=== PATIENT | female | born 1995 | race Caucasian/White ===

== ENCOUNTER 2017-05-14 21:26 | Emergency (ER) | payer OTHER ==
[2017-05-14] MEDS ORDERED: Phenergan 25 MG INJ IM ONE (21:53)
--- NOTE | 2017-05-14 21:54 | ERPHSYRPT ---
- History of Present Illness Time Seen by Provider: 05/14/17 21:48 Source: patient Exam Limitations: no limitations Physician History: YESTERDAY AT HOME PT WAS IN THE KITCHEN, BENT OVER, RAISED UP AND HIT THE BACK OF HER HEAD ON THE OVEN DOOR WITH RESULTANT HEADACHE, TINNITUS AND PHOTOPHOBIA. PT STATES SHE WAS STUNNED FOR A SECOND AFTER IMPACT. PT ALSO C/O VOMITING X5 TODAY WITHOUT BLOOD. Allergies/Adverse Reactions: ketorolac tromethamine [From Toradol] Allergy (Severe, Verified 09/10/15 07:41) Hives sumatriptan [From Imitrex] Allergy (Severe, Verified 09/10/15 07:41) Hives sumatriptan succinate [From Imitrex] Allergy (Severe, Verified 09/10/15 07:41) Hives tramadol Allergy (Severe, Verified 09/10/15 07:41) Hives Home Medications: Amphet Asp/Amphet/D-Amphet [Adderall Xr 20 mg Capsule] 1 tab DAILY 05/14/17 [ History] Control Patch 05/14/17 [History] Buspirone HCl [Buspar] 1 tab BID 05/14/17 [History] Citalopram Hydrobromide 20 mg* [ceLEXa 20 MG] 1 tab DAILY 05/14/17 [History] Meloxicam 7.5 mg [Mobic 7.5 MG] 1 tab DAILY 05/14/17 [History] Hx Tetanus, Diphtheria Vaccination/Date Given: Yes (up to date) Hx Influenza Vaccination/Date Given: No Hx Pneumococcal Vaccination/Date Given: No - Review of Systems Eyes: Photophobia Ears, Nose, & Throat: Tinnitus Respiratory: No Dyspnea Cardiac: No Chest Pain Abdominal/Gastrointestinal: Vomiting, No Abdominal Pain Neurological: Headache All Other Systems: Reviewed and Negative - Past Medical History Pertinent Past Medical History: Yes Neurological History: Migraines ENT History: No Pertinent History Cardiac History: No Pertinent History Respiratory History: Asthma Endocrine Medical History: No Pertinent History Musculoskeletal History: No Pertinent History GI Medical History: No Pertinent History History: Other Psycho-Social History: Anxiety Female Reproductive Disorders: Endometriosis Other Medical History: FREQUENT KIDNEY INFECTION - Past Surgical History Past Surgical History: Yes Neuro Surgical History: No Pertinent History Cardiac: No Pertinent History Respiratory: No Pertinent History Gastrointestinal: Exploratory Laparoscopy Genitourinary: No Pertinent History Musculoskeletal: Orthopedic Surgery Female Surgical History: Other Other Surgical History: LEFT HAND SURG,CYST REMOVED, - Social History Smoking Status: Current every day smoker How long have you smoked: 2 Exposure to second hand smoke: No Drug Use: none Patient Lives Alone: No Significant Family History: no pertinent family hx - Female History Hx Now: No - Nursing Vital Signs Nursing Vital Signs: Initial Vital Signs Temperature 98.1 F 05/14/17 21:34 Pulse Rate 56 L 05/14/17 21:34 Respiratory Rate 18 05/14/17 21:34 O2 Sat by Pulse Oximetry 100 05/14/17 21:34 Pain Scale Pain Intensity 7 - Physical Exam General Appearance: alert Eye Exam: PERRL/EOMI, eyes nml inspection Ears, Nose, Throat Exam: TMs normal, pharynx normal, moist mucous membranes Neck Exam: normal inspection, non-tender, full range of motion Respiratory Exam: normal breath sounds, lungs clear Cardiovascular Exam: normal heart sounds Gastrointestinal/Abdomen Exam: soft, normal bowel sounds Back Exam: normal range of motion, No vertebral tenderness Extremity Exam: normal range of motion, No pedal edema Neurologic Exam: alert, cooperative, sensation nml, No motor deficits Skin Exam: other (OCCIPUT HAS A 2 CM DIAMETER MILDLY EDEMATOUS AND TENDER AREA WITHOUT LACERATION.) SpO2 Interpretation: normal SpO2: 100 Oxygen Delivery: Room Air - Course Nursing assessment & vital signs reviewed: Yes - CT Exams Head CT Interpretation: Tele-radiologist Report (NORMAL HEAD/BRAIN CT.) Ordered Tests: Active Orders 24 hr Category Date Time Status HEAD WITHOUT CONTRAST [CT] Stat Exams 05/14/17 21:53 Taken Medication Summary Discontinued Medications Generic Name Dose Route Start Last Admin Trade Name Freq PRN Reason Stop Dose Admin Promethazine HCl 25 mg 05/14/17 21:53 05/14/17 22:03 Phenergan 25 Mg Inj IM 05/14/17 21:54 25 mg STAT ONE Administration Promethazine HCl Confirm 05/14/17 22:01 Phenergan 25 Mg Inj Administered 05/14/17 22:02 Dose 25 mg .ROUTE .STK-MED ONE - Departure Time of Disposition: 22:34 Departure Disposition: Home Clinical Impression: HEAD CONTUSION Condition: Stable Critical Care Time: No Referrals: ERIC HIGHTOWER MD [Primary Care Provider] - Instructions: Closed Head Injury Additional Instructions: FOLLOW UP WITH PRIVATE DOCTOR TOMORROW. Prescriptions: Promethazine HCl 25 mg [Phenergan 25 mg] 25 mg PO Q4H PRN PRN #14 tablet PRN Reason: Nausea/Vomiting
[2017-05-14] MEDS ORDERED: Phenergan 25 MG INJ ONE (22:01)
[2017-05-14] MEDS ORDERED: NORCO 5/325 MG PO ONE (22:34)
[2017-05-14] MEDS ORDERED: NORCO 5/325 MG ONE (22:44)
[2017-05-14 22:55] VITALS: BP 129/71; PULSE 62; O2SAT 98
--- NOTE | 2017-05-15 14:41 | XRAY ---
Exam: CT of the head without IV contrast from 05/14/2017. CTDI: 51.77 Comparison: None. Indication: Struck back of head yesterday on stove, patient having severe headache with nausea. Technique: Non-IV contrast axial images were obtained through the brain. Reconstructed coronal and sagittal images were created and reviewed. Findings: The ventricles appear of normal size. No focal mass effect or midline shift is seen. There is no evidence of acute intracranial bleed or abnormal extra-axial fluid collection. Scanlon matter-white matter differentiation is preserved. No acute territorial infarct or evidence of significant focal low-attenuation edema is seen. The cortical sulci appear unremarkable. The calvarium of the skull reveals no fracture. The visualized paranasal sinuses and mastoid air cells appear clear. Impression: 1. No acute intracranial bleed or other acute intracranial process is seen. 2. There is no acute fracture of the calvarium of the skull.
== END 2017-05-14 22:56 | disposition home or self-care (01) ==
LOC: ED 21:26
DX: S00.93XA Contusion of unspecified part of head, initial encounter (principal); W22.8XXA Striking against or struck by other objects, initial encounter; R51 Headache; H93.19 Tinnitus, unspecified ear; H53.149 Visual discomfort, unspecified; R11.10 Vomiting, unspecified
CPT/HCPCS: 70450; 96372; 99284; J2550; A9270-GY

== ENCOUNTER 2017-06-19 14:07 | Emergency (ER) | payer OTHER ==
[2017-06-19] MEDS ORDERED: Adacel Vial IM ONE ×2 (14:23→14:25)
[2017-06-19] MEDS ORDERED: Marcaine 0.5% SDV 10 ML IJ ONE (14:23)
[2017-06-19] MEDS ORDERED: BACIGUENT PACKET TP ONE (14:23)
[2017-06-19] MEDS ORDERED: Marcaine 0.5% SDV 10 ML ONE (14:24)
--- NOTE | 2017-06-19 14:36 | ERPHSYRPT ---
- History of Present Illness Time Seen by Provider: 06/19/17 14:11 Source: patient, family (mother) Patient Subjective Stated Complaint: accidental laceration to right wrist Triage Nursing Assessment: pt to er with c/o accidental laceration to right wrist, pt was attempting to open a box of diapers at her home with a snuff box finisher when the snuff box finisher slipped lacerating the inside of her left wrist, dressing in place per family, no bleeding noted, no swelling, pulses present, cap refill less than 2 second, dressing clean, dry and intact Physician History: CC: wrist cut hx: 21 y/o cut her wrist with a sharp snuff box finisher while opening diaper box at home [employer]. Some bleeding so came to ER. Unsure last tetanus vaccine but thinks 5- 7 years ago. 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 Pain is severe. LMP current ILL: Asthma Surg: left 5th finger, laparoscopy, lipoma ALL: Toradol, tramadol, imitrex Meds: Adderal, buspar, celexa, meloxicam, proair prn Social: Smoker Occurred: just prior to arrival Severity of Pain-Max: severe Severity of Pain-Current: severe Allergies/Adverse Reactions: ketorolac tromethamine [From Toradol] Allergy (Severe, Verified 09/10/15 07:41) Hives sumatriptan [From Imitrex] Allergy (Severe, Verified 09/10/15 07:41) Hives sumatriptan succinate [From Imitrex] Allergy (Severe, Verified 09/10/15 07:41) Hives tramadol Allergy (Severe, Verified 09/10/15 07:41) Hives Home Medications: Amphet Asp/Amphet/D-Amphet [Adderall Xr 20 mg Capsule] 1 tab DAILY 05/14/17 [ History] Control Patch 05/14/17 [History] Buspirone HCl [Buspar] 1 tab BID 05/14/17 [History] Citalopram Hydrobromide 20 mg* [ceLEXa 20 MG] 1 tab DAILY 05/14/17 [History] Meloxicam 7.5 mg [Mobic 7.5 MG] 1 tab DAILY 05/14/17 [History] Hx Tetanus, Diphtheria Vaccination/Date Given: Yes (approximately 7 years ago) Hx Influenza Vaccination/Date Given: No Hx Pneumococcal Vaccination/Date Given: No Immunizations Up to Date: Yes - Review of Systems Constitutional: No Symptoms Skin: Skin Lesions (cut on right wrist) Neurological: No Focal Weakness, No Parasthesia - Past Medical History Pertinent Past Medical History: Yes Neurological History: Migraines ENT History: No Pertinent History Cardiac History: No Pertinent History Respiratory History: Asthma Endocrine Medical History: No Pertinent History Musculoskeletal History: No Pertinent History GI Medical History: No Pertinent History History: No Pertinent History Psycho-Social History: Anxiety Female Reproductive Disorders: Endometriosis Other Medical History: FREQUENT KIDNEY INFECTION - Past Surgical History Past Surgical History: Yes Neuro Surgical History: No Pertinent History Cardiac: No Pertinent History Respiratory: No Pertinent History Gastrointestinal: No Pertinent History Genitourinary: No Pertinent History Musculoskeletal: No Pertinent History Female Surgical History: Other Other Surgical History: lypoma 2013, laproscopy for endometriosis 2011, crush injury to left pinky with infection 2004 - Social History Smoking Status: Unknown if ever smoked How long have you smoked: 2 Exposure to second hand smoke: No Drug Use: none Patient Lives Alone: No Significant Family History: no pertinent family hx - Female History Hx Now: No - Nursing Vital Signs Nursing Vital Signs: Initial Vital Signs Temperature 98.0 F 06/19/17 14:23 Pulse Rate 79 06/19/17 14:23 Respiratory Rate 18 06/19/17 14:23 Blood Pressure 133/86 06/19/17 14:23 O2 Sat by Pulse Oximetry 99 06/19/17 14:23 Pain Scale Pain Intensity 7 - Physical Exam General Appearance: alert, anxiety Eyes, Ears, Nose, Throat Exam: moist mucous membranes Neck Exam: supple Cardiovascular/Respiratory Exam: regular rate/rhythm Neuro/Tendon Exam: normal motor functions Mental Status Exam: alert, oriented x 3, cooperative Skin Exam: warm, dry SpO2: 99 Oxygen Delivery: Room Air Comments: Right volar wrist has 2 cm laceration thru skin but not invading deep structures. Light touch sensation intact in hand but two point unreliable in all spheres. No active bleeding. No foreign body noted. Procedures - Laceration/Wound Repair right volar wrist Wound Location: Right Wound Length (cm): 2 Wound's Depth, Shape: superficial Wound Explored: no foreign body noted Hibiclens Prep: Yes Anesthesia: local, marcaine 0.5 Wound Repaired With: sutures Suture Size/Type: 4-0 Number of Sutures: 4 Layer Closure?: No Sterile Dressing Applied?: Yes - Course Nursing assessment & vital signs reviewed: Yes Ordered Tests: Active Orders 24 hr Category Date Time Status Prepare for Sutures STAT Care 06/19/17 14:23 Active Sutures STAT Care 06/19/17 14:23 Active Wound Care STAT Care 06/19/17 14:23 Active Medication Summary Discontinued Medications Generic Name Dose Route Start Last Admin Trade Name Juan David PRN Reason Stop Dose Admin Bacitracin 0.9 gm 06/19/17 14:23 06/19/17 14:28 Baciguent Packet TP 06/19/17 14:24 0.9 gm STAT ONE Administration Bupivacaine HCl 5 ml 06/19/17 14:23 06/19/17 14:29 Marcaine 0.5% Sdv 10 Ml IJ 06/19/17 14:24 5 ml STAT ONE Administration Bupivacaine HCl Confirm 06/19/17 14:24 Marcaine 0.5% Sdv 10 Ml Administered 06/19/17 14:25 Dose 10 ml .ROUTE .STK-MED ONE Diphtheria/Tetanus/Acell Pertussis 0.5 ml 06/19/17 14:23 06/19/17 14:28 Adacel Vial IM 06/19/17 14:24 0.5 ml .ONCE ONE Administration Diphtheria/Tetanus/Acell Pertussis Confirm 06/19/17 14:25 Adacel Vial Administered 06/19/17 14:26 Dose 0.5 ml IM .STK-MED ONE - Progress Progress Note: 06/19/17 14:35 2.5ml 0.5% plain marcaine used for local anesthetic for pain relief on arrival. 06/19/17 14:50 Wound instr given. Counseled pt/family regarding: diagnosis, need for follow-up - Departure Time of Disposition: 14:51 Departure Disposition: Home Clinical Impression: Laceration of wrist, right Condition: Stable Critical Care Time: No Referrals: ERIC HIGHTOWER MD [Primary Care Provider] - Instructions: Care for a Laceration After Repair Additional Instructions: LACERATION CARE 1. Do not use peroxide, merthiolate, alcohol, or betadine. 2. Keep wound clean and dry. 3. Change dressing if it becomes wet or soiled. 4. If you must work, wear protective covering. 5. You may return to the emergency department or see your family physician for suture removal. 6. See your family physician or return to the emergency department for any of the following signs or symptoms: A. Redness B. Swelling C. Discolored drainage D. Red streaks E. Elevated temperature F. Other signs of infection Suture removal in 10 days. Tylenol if needed for pain. Keep wound covered at work. Keep wound clean and dry.
[2017-06-19] MEDS ORDERED: BACIGUENT PACKET ONE (14:52)
[2017-06-19 15:05] VITALS: BP 165/84; PULSE 72; O2SAT 100
== END 2017-06-19 15:05 | disposition home or self-care (01) ==
LOC: ED 14:07
PROC: 0HQDXZZ Repair Right Lower Arm Skin, External Approach (ICD-10-PCS; principal; 2017-06-19)
DX: S61.511A Laceration without foreign body of right wrist, initial encounter (principal); W26.0XXA Contact with knife, initial encounter
CPT/HCPCS: 12001; 90471; 90715; 99283; 99284; A9270-GY

== ENCOUNTER 2018-10-04 23:57 | Inpatient (IN) | payer OTHER ==
[2018-10-05] MEDS ORDERED: PITOCIN 30 UNITS/ LR 500 ML 500 ML IV ONE (00:14)
[2018-10-05] MEDS ORDERED: XYLOCAINE 1% HCL 20 ML MDV ONE (00:14)
[2018-10-05] MEDS ORDERED: Lactated Ringers 1,000 ML IV ONE (00:14)
[2018-10-05] MEDS ORDERED: MOTRIN 400 MG ONE (01:16)
[2018-10-05] MEDS: MOTRIN 400 MG PO PRN ×2 (01:20→16:32)
[2018-10-05] MEDS ORDERED: XYLOCAINE 1% HCL 20 ML MDV IJ PRN (01:36)
[2018-10-05] MEDS ORDERED: NORCO 5/325 MG PO PRN (01:37)
[2018-10-05] MEDS ORDERED: Dulcolax 10 MG SUPP PR PRN (01:37)
[2018-10-05] MEDS ORDERED: Anucort-HC SUPPOSITORY PR PRN (01:37)
[2018-10-05] MEDS ORDERED: Dermoplast Spray TP PRN (01:37)
[2018-10-05] MEDS ORDERED: TUCKS TP PRN (01:37)
[2018-10-05] MEDS ORDERED: CORTISONE 1% CREAM TP PRN (01:37)
[2018-10-05] MEDS ORDERED: LANSINOH 40 GM TOP PRN (01:37)
[2018-10-05] MEDS ORDERED: Mylicon 80MG PO PRN (01:37)
[2018-10-05 01:45] LABS: BASOPHIL % 0.2 % (0.0-0.4); Basophil (Absolute #) 0.02 (0-0.4); Eosinophil % 0.4 % (0.00-5.0); Eosinophil (Absolute #) 0.05 (0-0.5); Granulocyte Absolute (ANC) 10.03 (1.4-6.9); Granulocytes % 78.7 % (36.0-66.0); Hematocrit 36.7 % (35-47); Hemoglobin 11.6 gm/dl (12.0-16.0); Lymphocytes % 15.7 % (24.0-44.0); Mean Cell Volume 84.4 fl (78-100); Mean Corpuscular Hgb Concent. 31.6 g/dl (32-36); Mean Platelet Volume 9.7 fl (6-9.5); Monocyte (Absolute #) 0.64 (0.0-1.3); Platelet Count 276 K/mm3 (150-450); Red Blood Count 4.35 M/mm3 (4.1-5.4); Red Cell Distribution Width 14.6 % (11.5-14.0); White Blood Count 12.7 K/mm3 (4.0-10.5)
[2018-10-05 01:47] LABS: Mean Corpuscular Hemoglobin 26.6 pg (26-32)
[2018-10-05] MEDS ORDERED: PITOCIN 30 UNITS/ LR 500 ML 500 ML IV SCH (02:00)
[2018-10-05] MEDS ORDERED: Lactated Ringers 1,000 ML IV SCH (02:00)
[2018-10-05 04:33] LABS: Amphetamine,Urine NEGATIVE (NEGATIVE); Barbiturate,Urine NEGATIVE (NEGATIVE); Benzodiazepine,Urine NEGATIVE (NEGATIVE); Cocaine,Urine NEGATIVE (NEGATIVE); Methadone,Urine NEGATIVE (NEGATIVE); Opiate,Urine NEGATIVE (NEGATIVE); PCP,Urine NEGATIVE (NEGATIVE); THC,Urine NEGATIVE (NEGATIVE)
[2018-10-05 06:17] LABS: BASOPHIL % 0.2 % (0.0-0.4); Basophil (Absolute #) 0.02 (0-0.4); Eosinophil % 0.1 % (0.00-5.0); Eosinophil (Absolute #) 0.01 (0-0.5); Granulocyte Absolute (ANC) 10.64 (1.4-6.9); Granulocytes % 83.3 % (36.0-66.0); Hematocrit 32.8 % (35-47); Hemoglobin 10.2 gm/dl (12.0-16.0); Lymphocyte (Absolute #) 1.46 (1.0-4.6); Lymphocytes % 11.5 % (24.0-44.0); Mean Corpuscular Hemoglobin 26.4 pg (26-32); Mean Corpuscular Hgb Concent. 31.1 g/dl (32-36); Mean Platelet Volume 9.4 fl (6-9.5); Monocyte (Absolute #) 0.62 (0.0-1.3); Monocytes % 4.9 % (0.0-12.0); Platelet Count 266 K/mm3 (150-450); Red Blood Count 3.86 M/mm3 (4.1-5.4); Red Cell Distribution Width 14.4 % (11.5-14.0); White Blood Count 12.8 K/mm3 (4.0-10.5)
[2018-10-05] MEDS: TYLENOL EXTRA STRENGTH 500 MG PO PRN (06:23)
[2018-10-05 06:37] LABS: ABO TYPING A; RH TYPING POSITIVE
[2018-10-05] MEDS: Colace 100 MG PO SCH ×2 (10:54→22:14)
[2018-10-05] MEDS: FERREX 150 PO SCH (10:54)
[2018-10-06] MEDS: TYLENOL EXTRA STRENGTH 500 MG PO PRN ×2 (03:52→18:35)
[2018-10-06] MEDS: Colace 100 MG PO SCH ×2 (15:30→21:41)
[2018-10-06] MEDS: FERREX 150 PO SCH (15:30)
[2018-10-07] MEDS: TYLENOL EXTRA STRENGTH 500 MG PO PRN ×2 (04:29→10:27)
--- NOTE | 2018-10-07 07:18 | PCM.DS ---
Discharge Summary Date of Admission: 10/04/18 23:57 Admitting Physician: ERIC HIGHTOWER Primary Care Provider: YOLA KHALIL Allergies Allergies ketorolac tromethamine [From Toradol] Allergy (Severe, Verified 09/10/15 07:41) Hives sumatriptan [From Imitrex] Allergy (Severe, Verified 09/10/15 07:41) Hives sumatriptan succinate [From Imitrex] Allergy (Severe, Verified 09/10/15 07:41) Hives tramadol Allergy (Severe, Verified 09/10/15 07:41) [facility] Summary - Hospital Course Hospital Course: 23yo arrived at 38 wks in active labor, full dilation. has been under the care of Dr Valenzuela and was planning to deliver at [place] but didn't think she could make it there. no problems with care. her female, well bonded with infant. has mild lochia, minimal pain controlled with tylenol/ibuprofen. - Vitals & Intake/Output Vital Signs: Vital Signs Temperature 98.5 F 10/07/18 04:20 Pulse Rate 61 10/07/18 04:20 Respiratory Rate 18 10/07/18 04:20 Blood Pressure 110/58 10/07/18 04:20 O2 Sat by Pulse Oximetry Intake & Output: Intake & Output 10/04/18 10/05/18 10/06/18 10/07/18 11:59 11:59 11:59 11:59 Intake Total 969 750 600 Balance 969 750 600 Weight 69.853 kg - Lab Result Diagrams: 10/05/18 05:50 - Procedures and Test Procedures and Tests throughout Hospitalization: Therapy Orders & Screens 10/04/18 23:50 Standby Routine Comment: Diagnosis: Labor Patient Discharge Exam General Appearance: no apparent distress, alert Skin Exam: normal color, warm, dry Eye Exam: PERRL, EOMI, eyes nml inspection Respiratory Exam: normal breath sounds, lungs clear, No respiratory distress Cardiovascular Exam: regular rate/rhythm, normal heart sounds Gastrointestinal/Abdomen Exam: soft, No tenderness, No mass Extremity Exam: normal inspection, normal range of motion Final Diagnosis/Problem List - Final Discharge Diagnosis/Problem (1) Vaginal delivery Current Visit: Yes Status: Acute (2) () Current Visit: Yes Status: Acute - Discharge Disposition: Home, Self-Care Condition: Stable Prescriptions: No Action Vits W-Ca,Fe,FA(<1Mg) [] 1 each PO DAILY Follow up with: ERIC HIGHTOWER MD [ACTIVE STAFF] - 1 Week
[2018-10-07] MEDS ORDERED: Adacel Vial IM ONE (10:00)
[2018-10-07 10:15] VITALS: BP 121/64; PULSE 67
[2018-10-07] MEDS: FERREX 150 PO SCH (10:26)
[2018-10-07] MEDS: Colace 100 MG PO SCH (10:26)
== END 2018-10-07 12:15 | disposition home or self-care (01) | DRG 807 ==
LOC: UNDOADMOB 23:57 → OB 23:57 → OBSVTOIN 23:57 → INTOOBSV 23:57
PROVIDERS: ADMIT Family Medicine; ATTEND Family Medicine
PROC: 10E0XZZ Delivery of Products of Conception, External Approach (ICD-10-PCS; principal; 2018-10-05)
DX: O80 Encounter for full-term uncomplicated delivery (principal); Z37.0 Single live birth; Z3A.38 38 weeks gestation of pregnancy
CPT/HCPCS: 36415; 80307; 85025; 86900; 86901; 90715; 94799; G0378; J2590; A9270-GY

== ENCOUNTER 2019-10-31 19:57 | Emergency (ER) | payer OTHER ==
--- NOTE | 2019-10-31 20:22 | ERPHSYRPT ---
- History of Present Illness Time Seen by Provider: 10/31/19 20:22 Source: patient, family Exam Limitations: no limitations Patient Subjective Stated Complaint: pt states, "I had a small amt of bright red blood in my underwear today, it is lightning up but still concerned me". Triage Nursing Assessment: pt c/o bright red blood in underwear today about the size of a 50 cent piece. It's getting process development manager and no further bleeding but pt is concerned. This is pt's 3rd , no spotting with the other 2 pregnancies. Physician History: 24 y/o white female presents vaginal bleeding yesterday and lightening up but still present. pt is 6 weeks . pt became concerned with the bilat lower quad mild cramping and bilat lower back cramping. no sig abd pain anywhere else and not localized. pt has h/o recurrent utis Timing/Duration: yesterday Activites at Onset: none Quality: cramping Onset Location: suprapubic, right flank, left flank Pain Radiation: none Severity of Pain-Max: mild Severity of Pain-Current: mild Sexual intercourse history: non-contributory Modifying Factors: Improves With: nothing Associated Symptoms: Allergies/Adverse Reactions: ketorolac tromethamine [From Toradol] Allergy (Severe, Verified 09/10/15 07:41) Hives sumatriptan [From Imitrex] Allergy (Severe, Verified 09/10/15 07:41) Hives sumatriptan succinate [From Imitrex] Allergy (Severe, Verified 09/10/15 07:41) Hives tramadol Allergy (Severe, Verified 09/10/15 07:41) Hives Home Medications: Vits W-Ca,Fe,FA(<1Mg) [] 1 each PO DAILY 10/05/18 [History] Hx Tetanus, Diphtheria Vaccination/Date Given: Yes Hx Influenza Vaccination/Date Given: No Hx Pneumococcal Vaccination/Date Given: No - Review of Systems Constitutional: No Symptoms Eyes: No Symptoms Ears, Nose, & Throat: No Symptoms Respiratory: No Symptoms Cardiac: No Symptoms Abdominal/Gastrointestinal: Abdominal Pain (bilat suprapubic) Genitourinary Symptoms: No Symptoms Musculoskeletal: Back Pain (lower back cramping ) Skin: No Symptoms Neurological: No Symptoms Psychological: No Symptoms Endocrine: No Symptoms Hematologic/Lymphatic: No Symptoms Immunological/Allergic: No Symptoms All Other Systems: Reviewed and Negative - Past Medical History Pertinent Past Medical History: Yes Neurological History: Migraines ENT History: No Pertinent History Cardiac History: No Pertinent History Respiratory History: Asthma Endocrine Medical History: No Pertinent History Musculoskeletal History: No Pertinent History GI Medical History: No Pertinent History History: No Pertinent History Psycho-Social History: Anxiety, Depression Female Reproductive Disorders: Endometriosis Other Medical History: FREQUENT KIDNEY INFECTION - Past Surgical History Past Surgical History: Yes Neuro Surgical History: No Pertinent History Cardiac: No Pertinent History Respiratory: No Pertinent History Gastrointestinal: No Pertinent History Genitourinary: No Pertinent History Musculoskeletal: No Pertinent History Female Surgical History: Other Other Surgical History: lypoma 2013, laproscopy for endometriosis 2011, crush injury to left pinky with infection 2004, carpal and cubital tunnel surgery right hand 2016 - Social History Smoking Status: Current every day smoker How long have you smoked: 6 yrs Exposure to second hand smoke: Yes Drug Use: none Patient Lives Alone: No Significant Family History: no pertinent family hx - Female History Hx Last Menstrual Period: 09/11/19 Hx Now: Yes Expected Date of Delivery: 06/15/20 Gestational Age: 6 wks - Nursing Vital Signs Nursing Vital Signs: Initial Vital Signs Temperature 98.3 F 10/31/19 20:10 Pulse Rate 66 10/31/19 20:10 Respiratory Rate 15 10/31/19 20:10 Blood Pressure 141/84 10/31/19 20:10 O2 Sat by Pulse Oximetry 97 10/31/19 20:10 Pain Scale Pain Intensity 3 - Physical Exam General Appearance: no apparent distress, alert, anxiety Eye Exam: PERRL/EOMI, eyes nml inspection Ears, Nose, Throat Exam: normal ENT inspection, moist mucous membranes Neck Exam: normal inspection, non-tender, supple, full range of motion Respiratory Exam: normal breath sounds, lungs clear, airway intact, No chest tenderness, No respiratory distress Cardiovascular Exam: regular rate/rhythm, normal heart sounds, normal peripheral pulses Gastrointestinal/Abdomen Exam: soft, normal bowel sounds, tenderness (mild suprapubic), No guarding, No rebound Pelvic Exam: not done Rectal Exam: not done Back Exam: normal inspection, normal range of motion, vertebral tenderness, No CVA tenderness Extremity Exam: normal inspection, normal range of motion, pelvis stable Neurologic Exam: alert, oriented x 3, cooperative, mediation commissioner II-XII nml as tested Skin Exam: normal color, warm, dry Lymphatic Exam: No adenopathy SpO2 Interpretation: normal SpO2: 97 O2 Delivery: Room Air - Course Nursing assessment & vital signs reviewed: Yes Ordered Tests: Active Orders 24 hr Category Date Time Status CBC W DIFF Stat Lab 10/31/19 20:35 Completed CMP Stat Lab 10/31/19 20:35 Completed HCG, Quantitative (Inhouse) Stat Lab 10/31/19 20:35 Completed UA W/RFX UR CULTURE Stat Lab 10/31/19 20:30 Completed Lab/Rad Data: Laboratory Result Diagrams 10/31/19 20:35 10/31/19 20:35 Laboratory Results 10/31/19 10/31/19 10/31/19 Range/Units 20:35 20:35 20:30 WBC 7.7 (4.0-10.5) K/mm3 RBC 4.58 (4.1-5.4) M/mm3 Hgb 12.8 (12.0-16.0) gm/dl Hct 39.1 (35-47) % MCV 85.4 (78-100) fl MCH 27.9 (26-32) pg MCHC 32.7 (32-36) g/dl RDW 16.6 H (11.5-14.0) % Plt Count 266 (150-450) K/mm3 MPV 8.6 (7.5-11.0) fl Gran % 64.6 (36.0-66.0) % Eos # (Auto) 0.05 (0-0.5) Absolute Lymphs (auto) 2.14 (1.0-4.6) Absolute Monos (auto) 0.50 (0.0-1.3) Lymphocytes % 27.9 (24.0-44.0) % Monocytes % 6.5 (0.0-12.0) % Eosinophils % 0.7 (0.00-5.0) % Basophils % 0.3 (0.0-0.4) % Absolute Granulocytes 4.97 (1.4-6.9) Basophils # 0.02 (0-0.4) Sodium 137 (137-145) mmol/L Potassium 3.3 L (3.5-5.1) mmol/L Chloride 102 (98-107) mmol/L Carbon Dioxide 26 (22-30) mmol/L Anion Gap 12.4 (5-15) MEQ/L BUN 7 (7-17) mg/dL Creatinine 0.50 L (0.52-1.04) mg/dL Estimated GFR > 60.0 ML/MIN Glucose 92 (74-106) mg/dL Calcium 9.3 (8.4-10.2) mg/dL Total Bilirubin 0.40 (0.2-1.3) mg/dL AST 17 (14-36) U/L ALT 12 (0-35) U/L Alkaline Phosphatase 49 (38-126) U/L Serum Total Protein 7.2 (6.3-8.2) g/dL Albumin 4.1 (3.5-5.0) g/dL Beta HCG, Quant 84385 mIU/ml Urine Color YELLOW (YELLOW) Urine Appearance CLEAR (CLEAR) Urine pH 7.0 (5-6) Ur Specific [place] 1.017 (1.005-1.025) Urine Protein NEGATIVE (Negative) Urine Ketones NEGATIVE (NEGATIVE) Urine Blood SMALL (0-5) Say/ul Urine Nitrite NEGATIVE (NEGATIVE) Urine Bilirubin NEGATIVE (NEGATIVE) Urine Urobilinogen NEGATIVE (0-1) mg/dL Ur Leukocyte Esterase NEGATIVE (NEGATIVE) Urine WBC (Auto) NONE (0-5) /HPF Urine RBC (Auto) 0-2 (0-2) /HPF U Epithel Cells (Auto) NONE (FEW) /HPF Urine Mucus (Auto) SLIGHT (NEGATIVE) /HPF Urine Culture Reflexed NO (NO) Urine Glucose NEGATIVE (NEGATIVE) mg/dL - Progress Progress: unchanged Air Movement: good Blood Culture(s) Obtained: No Antibiotics given: No Counseled pt/family regarding: lab results, diagnosis, need for follow-up - Departure Departure Disposition: Home Clinical Impression: Abdominal cramping affecting , Vaginal bleeding affecting early Condition: Stable Critical Care Time: No Referrals: ERIC HIGHTOWER MD [Primary Care Provider] - Additional Instructions: follow up with radiology tomorrow morning for vaginal ultrasound.
[2019-10-31 20:42] LABS: Absolute Neutrophil Ct (ANC) 4.97 (1.4-6.9); BASOPHIL % 0.3 % (0.0-0.4); Basophil (Absolute #) 0.02 (0-0.4); Eosinophil % 0.7 % (0.00-5.0); Eosinophil (Absolute #) 0.05 (0-0.5); Hematocrit 39.1 % (35-47); Hemoglobin 12.8 gm/dl (12.0-16.0); Lymphocyte (Absolute #) 2.14 (1.0-4.6); Lymphocytes % 27.9 % (24.0-44.0); Mean Cell Volume 85.4 fl (78-100); Mean Corpuscular Hemoglobin 27.9 pg (26-32); Mean Corpuscular Hgb Concent. 32.7 g/dl (32-36); Mean Platelet Volume 8.6 fl (7.5-11.0); Monocytes % 6.5 % (0.0-12.0); Neutrophil % 64.6 % (36.0-66.0); Platelet Count 266 K/mm3 (150-450); Red Blood Count 4.58 M/mm3 (4.1-5.4); Red Cell Distribution Width 16.6 % (11.5-14.0); White Blood Count 7.7 K/mm3 (4.0-10.5)
[2019-10-31 20:46] LABS: Appearance CLEAR (CLEAR); Bilirubin NEGATIVE (NEGATIVE); Blood SMALL Ery/ul (0-5); Glucose NEGATIVE (NEGATIVE); Ketones NEGATIVE (NEGATIVE); Leukocyte Esterase NEGATIVE (NEGATIVE); Mucus SLIGHT /HPF (NEGATIVE); Nitrite NEGATIVE (NEGATIVE); Protein,Urine Dip NEGATIVE (Negative); RBC 0-2 /HPF (0-2); Specific Gravity 1.017 (1.005-1.025); Urobilinogen NEGATIVE mg/dL (0-1)
[2019-10-31 21:11] LABS: ALBUMIN 4.1 g/dL (3.5-5.0); ALKALINE PHOSPHATASE 49 U/L (38-126); ANION GAP 12.4 MEQ/L (5-15); BLOOD UREA NITROGEN 7 mg/dL (7-17); CHLORIDE 102 mmol/L (98-107); Calcium 9.3 mg/dL (8.4-10.2); Carbon Dioxide 26 mmol/L (22-30); Glucose 92 mg/dL (74-106); Potassium 3.3 mmol/L (3.5-5.1); SGOT/AST 17 U/L (14-36); SGPT/ALT 12 U/L (0-35); SODIUM 137 mmol/L (137-145); Total Protein 7.2 g/dL (6.3-8.2)
[2019-10-31 21:42] LABS: HCG, Quantitative (Inhouse) 59517 mIU/ml
[2019-10-31 22:22] VITALS: BP 129/75; PULSE 56
[2019-10-31 22:24] VITALS: O2SAT 97
== END 2019-10-31 23:04 | disposition home or self-care (01) ==
LOC: ED 19:57
DX: O20.9 Hemorrhage in early pregnancy, unspecified (principal); Z3A.01 Less than 8 weeks gestation of pregnancy; R10.9 Unspecified abdominal pain
CPT/HCPCS: 36415; 80053; 81001; 84702; 85025; 99283

== ENCOUNTER 2019-11-01 15:42 | Observation (INO) | payer OTHER ==
--- NOTE | 2019-11-01 16:37 | XRAY ---
Indication: Normal supervision. Vomiting and bleeding. Two-dimensional transabdominal early OB ultrasound performed. Comparison: None. This . Uterus anteverted with presence of a single intrauterine gestational sac. Single pole and yolk sac present. Mean crown-rump length measures 0.88 cm corresponding to 6 weeks 6 days. heart rate 134 BPM. No abnormal subchorionic fluid. Left and right ovaries unremarkable. No suspicious adnexal mass or free fluid. Impression: Single viable intrauterine measuring 6 weeks 6 days. Expected date confinement is June 20, 2020.
[2019-11-01] MEDS ORDERED: TYLENOL 325 MG PO PRN (16:44)
[2019-11-01] MEDS: Sodium Chloride 0.9% 1000 ML 1,000 ML IV SCH (16:50)
[2019-11-01] MEDS ORDERED: SODIUM CHLORIDE 0.9% IV SCH (17:00)
[2019-11-01] MEDS ORDERED: POTASSIUM CHLORIDE IV SCH (17:00)
[2019-11-01 17:09] LABS: ALBUMIN 4.8 g/dL (3.5-5.0); ALKALINE PHOSPHATASE 63 U/L (38-126); ANION GAP 15.6 MEQ/L (5-15); BLOOD UREA NITROGEN 8 mg/dL (7-17); CHLORIDE 103 mmol/L (98-107); Calcium 9.7 mg/dL (8.4-10.2); Carbon Dioxide 23 mmol/L (22-30); Creatinine 1 0.55 mg/dL (0.52-1.04); Glucose 84 mg/dL (74-106); Potassium 3.6 mmol/L (3.5-5.1); SGOT/AST 21 U/L (14-36); SGPT/ALT 13 U/L (0-35); SODIUM 138 mmol/L (137-145); Total Protein 8.2 g/dL (6.3-8.2)
[2019-11-01 17:14] LABS: Hematocrit 42.7 % (35-47); Hemoglobin 14.3 gm/dl (12.0-16.0); Mean Cell Volume 85.6 fl (78-100); Mean Corpuscular Hemoglobin 28.7 pg (26-32); Mean Corpuscular Hgb Concent. 33.5 g/dl (32-36); Mean Platelet Volume 9.4 fl (7.5-11.0); Platelet Count 313 K/mm3 (150-450); Red Blood Count 4.99 M/mm3 (4.1-5.4); Red Cell Distribution Width 16.8 % (11.5-14.0); White Blood Count 9.6 K/mm3 (4.0-10.5)
[2019-11-01] MEDS: Phenergan 25 MG INJ IV PRN ×2 (17:44→21:57)
[2019-11-01 20:38] LABS: Appearance CLOUDY (CLEAR); Bacteria FEW /HPF (NEGATIVE); Bilirubin NEGATIVE (NEGATIVE); Blood MODERATE Ery/ul (0-5); Crystals Unidentified 25-50 /HPF (NEGATIVE); Epithelial Cells MODERATE /HPF (FEW); Glucose NEGATIVE (NEGATIVE); Ketones MODERATE (NEGATIVE); Leukocyte Esterase MODERATE (NEGATIVE); Mucus MANY /HPF (NEGATIVE); Nitrite NEGATIVE (NEGATIVE); Protein,Urine Dip 100 (Negative); Specific Gravity 1.029 (1.005-1.025); Urobilinogen 2 mg/dL (0-1)
[2019-11-01] MEDS ORDERED: Reglan 10 MG/2 ML IV ONE (23:30)
[2019-11-02] MEDS: Sodium Chloride 0.9% 1000 ML 1,000 ML IV SCH ×2 (00:48→09:41)
[2019-11-02] MEDS ORDERED: Reglan 10 MG/2 ML IV ONE (03:45)
[2019-11-02 07:24] VITALS: O2SAT 98
[2019-11-02] MEDS: Phenergan 25 MG INJ IV PRN ×2 (08:04→11:59)
--- NOTE | 2019-11-02 09:10 | PCM.DS ---
Discharge Summary Date of Admission: 11/01/19 15:45 Date of Discharge: 11/02/19 Admitting Physician: DARVIN REILLY MD Primary Care Provider: ERIC HIGHTOWER Allergies Allergies ketorolac tromethamine [From Toradol] Allergy (Severe, Verified 09/10/15 07:41) Hives sumatriptan [From Imitrex] Allergy (Severe, Verified 09/10/15 07:41) Hives sumatriptan succinate [From Imitrex] Allergy (Severe, Verified 09/10/15 07:41) Hives tramadol Allergy (Severe, Verified 09/10/15 07:41) [facility] Summary - Hospital Course Hospital Course: 24 yr old at 7 weeks gestation was admitted to hospital on 11/01/19 for dehydration and hyperemesis gravidum and threatened miscarriage. Patient presented to the clinic yesterday with reports of not being about to keep any food or drink down and decreased urination. She reported having vaginal bleeding with a large blood clot and then some spotting. Patient reported going to the ER the day prior and leaving due to frustration that they werent going to do and US and that she didnt feel they were doing a lot for her. Patient did have labs done in ER and states she was told her urine did not show UTI. Patient reports that she had been given a script of Zofran which she developed welts after taking. Patient reports that she is doing ok this am. She still was not able to keep much PO intake down. She reports that she had hyperemesis gravidum with her previous preg and that she took the generic form of diclegis with the last which helped. She reports that she still has significant nausea this am. She reports a 10 pounds weight loss over the past couple of weeks. She reports minimal spotting this am. She denies any headaches or abdominal pain or cramping. Patient has done ok with phenergan and reglan. She is concerned about the phenergan because it makes her very sleepy and she has children at home she needs to take care of. Patient would like to go home today if possible. - Vitals & Intake/Output Vital Signs: Vital Signs Temperature 97.0 F 11/02/19 07:24 Pulse Rate 64 11/02/19 07:24 Respiratory Rate 16 11/02/19 07:24 Blood Pressure 135/67 11/02/19 07:24 O2 Sat by Pulse Oximetry 98 11/02/19 07:24 Intake & Output: Intake & Output 10/30/19 10/31/19 11/01/19 11/02/19 11:59 11:59 11:59 11:59 Intake Total 1844 Output Total 300 Balance 1544 Weight 58.9 kg - Lab Result Diagrams: 11/01/19 16:30 11/01/19 16:30 Lab Results-Last 24 Hrs: Lab Results-Last 24 Hours 11/01/19 11/01/19 11/01/19 Range/Units 16:30 16:30 16:30 WBC 9.6 (4.0-10.5) K/mm3 RBC 4.99 (4.1-5.4) M/mm3 Hgb 14.3 (12.0-16.0) gm/dl Hct 42.7 (35-47) % MCV 85.6 (78-100) fl MCH 28.7 (26-32) pg MCHC 33.5 (32-36) g/dl RDW 16.8 H (11.5-14.0) % Plt Count 313 (150-450) K/mm3 MPV 9.4 (7.5-11.0) fl Sodium 138 (137-145) mmol/L Potassium 3.6 (3.5-5.1) mmol/L Chloride 103 (98-107) mmol/L Carbon Dioxide 23 (22-30) mmol/L Anion Gap 15.6 H (5-15) MEQ/L BUN 8 (7-17) mg/dL Creatinine 0.55 (0.52-1.04) mg/dL Estimated GFR > 60.0 ML/MIN Glucose 84 (74-106) mg/dL Calcium 9.7 (8.4-10.2) mg/dL Total Bilirubin 0.60 (0.2-1.3) mg/dL AST 21 (14-36) U/L ALT 13 (0-35) U/L Alkaline Phosphatase 63 (38-126) U/L Serum Total Protein 8.2 (6.3-8.2) g/dL Albumin 4.8 (3.5-5.0) g/dL Serum , Qual POSITIVE (Negative) Urine Color (YELLOW) Urine Appearance (CLEAR) Urine pH (5-6) Ur Specific Warne (1.005-1.025) Urine Protein (Negative) Urine Ketones (NEGATIVE) Urine Blood (0-5) Say/ul Urine Nitrite (NEGATIVE) Urine Bilirubin (NEGATIVE) Urine Urobilinogen (0-1) mg/dL Ur Leukocyte Esterase (NEGATIVE) Urine WBC (Auto) (0-5) /HPF Urine RBC (Auto) (0-2) /HPF U Epithel Cells (Auto) (FEW) /HPF Urine Bacteria (Auto) (NEGATIVE) /HPF Unidentified Crystals (NEGATIVE) /HPF Urine Mucus (Auto) (NEGATIVE) /HPF Urine Culture Reflexed (NO) Urine Glucose (NEGATIVE) mg/dL 11/01/19 Range/Units 20:30 WBC (4.0-10.5) K/mm3 RBC (4.1-5.4) M/mm3 Hgb (12.0-16.0) gm/dl Hct (35-47) % MCV (78-100) fl MCH (26-32) pg MCHC (32-36) g/dl RDW (11.5-14.0) % Plt Count (150-450) K/mm3 MPV (7.5-11.0) fl Sodium (137-145) mmol/L Potassium (3.5-5.1) mmol/L Chloride (98-107) mmol/L Carbon Dioxide (22-30) mmol/L Anion Gap (5-15) MEQ/L BUN (7-17) mg/dL Creatinine (0.52-1.04) mg/dL Estimated GFR ML/MIN Glucose (74-106) mg/dL Calcium (8.4-10.2) mg/dL Total Bilirubin (0.2-1.3) mg/dL AST (14-36) U/L ALT (0-35) U/L Alkaline Phosphatase (38-126) U/L Serum Total Protein (6.3-8.2) g/dL Albumin (3.5-5.0) g/dL Serum , Qual (Negative) Urine Color ALICIA (YELLOW) Urine Appearance CLOUDY (CLEAR) Urine pH 6.0 (5-6) Ur Specific Warne 1.029 (1.005-1.025) Urine Protein 100 (Negative) Urine Ketones MODERATE (NEGATIVE) Urine Blood MODERATE (0-5) Say/ul Urine Nitrite NEGATIVE (NEGATIVE) Urine Bilirubin NEGATIVE (NEGATIVE) Urine Urobilinogen 2 (0-1) mg/dL Ur Leukocyte Esterase MODERATE (NEGATIVE) Urine WBC (Auto) 6-10 (0-5) /HPF Urine RBC (Auto) 3-5 (0-2) /HPF U Epithel Cells (Auto) MODERATE (FEW) /HPF Urine Bacteria (Auto) FEW (NEGATIVE) /HPF Unidentified Crystals 25-50 (NEGATIVE) /HPF Urine Mucus (Auto) MANY (NEGATIVE) /HPF Urine Culture Reflexed ORDERED SEPARATELY (NO) Urine Glucose NEGATIVE (NEGATIVE) mg/dL - Radiology Exams Ordered Rad Exams-Entire Visit: Radiology Procedures Category Date Time Status OB <14 WKS 1ST GESTATION [US] Routine Exams 11/01/19 15:51 Completed Discharge Exam General Appearance: mild distress Neurologic Exam: oriented x 3, cooperative, normal mood/affect Eye Exam: No scleral icterus, No pale conjunctivae Respiratory Exam: normal breath sounds Cardiovascular Exam: normal heart sounds, gallop, No murmur, No friction rub Gastrointestinal/Abdomen Exam: soft, normal bowel sounds, No tenderness, No distention Skin Exam: normal color, warm, dry Final Diagnosis/Problem List - Final Discharge Diagnosis/Problem (1) Hyperemesis gravidarum Status: Acute Assessment & Plan: Patient has had this with previous . Prior to hospitalization she was unable to keep food down. Since admission she has tolerated PO ok. She was initially still having episodes of vomiting. We switched from phenergan to reglan which seemed to help her symptoms. Will likely have to keep on reglan as she now has an allergy to zofran. Patient was able to tolerate PO breakfast and lunch and felt like she was better and wanted to go home so she could be with her kids Code(s): O21.0 - MILD HYPEREMESIS GRAVIDARUM (2) Dehydration, moderate Status: Acute Assessment & Plan: Patient was dehydrated prior to being admitted. She was down 8 pounds from last outpatient visit. She vomiting everything she ate or drank. She was started on IV fluids and improved overnight. No signs of MICHAEL or other acute illness symptoms. Patient will be discharged today with follow up visit. We may have to admit patient in future for IV fluid therapy or send to infusion services if refractory vomiting is not present Code(s): E86.0 - DEHYDRATION (3) First trimester Status: Acute Code(s): Z33.1 - STATE, INCIDENTAL (4) Vaginal bleeding affecting early Status: Acute Assessment & Plan: Concern for threatened spontaneous miscarriage. Patient had US that showed viable 6.6 weeks preg. Will continue with routine care. Patient reports that her vaginal bleeding had slowed and she was only spotting today Code(s): O20.9 - HEMORRHAGE IN EARLY , UNSPECIFIED - Discharge Discharge Date: 11/02/19 Disposition: Home, Self-Care Condition: Stable Prescriptions: New Vit B6/Me-Thfolate/Me-B12/Ala [Nufola Capsule] 1 each PO HS PRN PRN #30 capsule PRN Reason: Nausea/Vomiting Metoclopramide HCl 10 mg [Reglan 10 MG] 10 mg PO Q8H PRN PRN 30 Days # 90 tablet PRN Reason: nausea and vomiting Doxylamine Succinate [Unisom] 25 mg PO HS PRN PRN #30 tablet PRN Reason: hyperemesis gravidarum Continue Vits W-Ca,Fe,FA(<1Mg) [] 1 each PO DAILY Instructions: Dehydration, Adult (DC), Nausea and Vomiting, Adult (DC) Follow up with: DARVIN REILLY MD [ACTIVE STAFF] - 11/09/19 10:00 am Forms: Discharge Instructions
[2019-11-02] MEDS ORDERED: THERAGRAN MULTIVITAMIN PO SCH (10:00)
[2019-11-02] MEDS ORDERED: NON-FORMULARY ITEM (Prenatal Vits W-Ca,Fe,Fa(<1mg) [Prenatal] 1 EACH) PO SCH (10:00)
[2019-11-02 13:17] VITALS: BP 130/71; PULSE 76
== END 2019-11-02 15:50 | disposition home or self-care (01) ==
LOC: MED SURG 15:45
PROVIDERS: ADMIT Family Medicine; ATTEND Family Medicine
DX: O21.1 Hyperemesis gravidarum with metabolic disturbance (principal); Z3A.01 Less than 8 weeks gestation of pregnancy
CPT/HCPCS: 36415; 76801; 80053; 81001; 81025; 85027; 87086; G0378; J2550; J3480

== ENCOUNTER 2020-04-10 15:09 | Observation (INO) | payer OTHER ==
[2020-04-10 16:03] VITALS: BP 107/67; PULSE 86; O2SAT 96
[2020-04-10 17:30] LABS: Amphetamine,Urine NEGATIVE (NEGATIVE); Barbiturate,Urine NEGATIVE (NEGATIVE); Benzodiazepine,Urine NEGATIVE (NEGATIVE); Cocaine,Urine NEGATIVE (NEGATIVE); Methadone,Urine NEGATIVE (NEGATIVE); Opiate,Urine NEGATIVE (NEGATIVE); PCP,Urine NEGATIVE (NEGATIVE); THC,Urine NEGATIVE (NEGATIVE)
--- NOTE | 2020-04-10 17:38 | XRAY ---
Exam: OB biophysical profile with nonstress from 04/10/2020. Comparison: OB ultrasound greater than 14 weeks from 03/27/2020 and 01/30/2020. Indication: Nausea/vomiting, evaluate cervical length, biophysical profile. Findings: breathing movements, gross body movements, tone, and qualitative amniotic fluid volume scores are all 2, yielding a total score of 8 points out of a maximum of 8 points. The fetus is in the cephalic lie. The cervical canal length is 5.05 cm and appears closed. The heart rate measures 125 bpm. Amniotic fluid index measures 14.65 cm which is within normal limits. The profile view appeared unremarkable. A three-vessel umbilical cord is seen. Incidentally, the stomach appeared prominent and elongated. No other significant dilated fluid-filled bowel loops are seen within the abdomen. The urinary bladder also appeared prominent in size measuring about 3.75 cm in maximum length. However, the kidneys appear normal. Significance is unclear. Impression: 1. Biophysical profile scores 8 points out of a maximum of 8 points. 2. Cervical canal length is 5.05 cm. Maternal cervical canal appears closed. 3. Normal amniotic fluid index of 14.65 cm. 4. Incidental note of prominent elongated stomach and prominent urinary bladder. Significance is unclear. Consider follow-up.
== END 2020-04-10 17:25 | disposition home or self-care (01) ==
LOC: OB 15:09
PROVIDERS: ADMIT Family Medicine; ATTEND Family Medicine
DX: Z34.83 Encounter for supervision of other normal pregnancy, third trimester (principal)
CPT/HCPCS: 59025; 76818; 80307; G0378

== ENCOUNTER 2020-04-27 14:00 | Observation (INO) | payer OTHER ==
[2020-04-27 15:39] VITALS: BP 119/68; PULSE 94
--- NOTE | 2020-04-28 11:32 | XRAY ---
Exam: OB biophysical profile with nonstress from 04/27/2020. Comparison: OB ultrasound follow-up from 04/17/2020 and OB biophysical profile with nonstress from 04/10/2020. Indication: Well-being. Findings: Assessment of breathing movements, gross body movements, tone, and qualitative amniotic fluid volume reveals a score of 6 points out of a maximum of 8 points. breathing movements were scored 0 out of a possible 2 points for less then 30 seconds of breathing movements in 30 minutes of observation. The fetus is in the cephalic lie. The heart rate measures 142 bpm. Both the stomach and urinary bladder are identified and again appear mildly prominent, as on the 2 prior studies as well. Amniotic fluid index measured 11.7 cm, previously 13.9 cm on 04/17/2020. Impression: 1. biophysical profile score was 6 points out of a maximum of 8 points. breathing movements was assessed as 0. Biophysical profile score on 04/10/2020 was 8 points out of a maximum of 8 points. Note: The comment section of the order states "transvaginal cervical length". The images do not provide this measurement. Cervical canal length on 04/10/2020 was reported as 5.05 cm. Please advise as to whether the patient needs to return to the Radiology Department for this measurement.
== END 2020-04-27 15:50 | disposition home or self-care (01) ==
LOC: MED SURG 14:00 → UNDOADMOB 14:00 → UNDODISOB 15:50
PROVIDERS: ADMIT Family Medicine; ATTEND Family Medicine
DX: O21.0 Mild hyperemesis gravidarum (principal); Z3A.32 32 weeks gestation of pregnancy
CPT/HCPCS: 59025; 76818; G0378

== ENCOUNTER 2020-05-11 07:43 | Observation (INO) | payer OTHER ==
[2020-05-11 16:38] VITALS: BP 111/64; PULSE 77
--- NOTE | 2020-05-11 21:35 | XRAY ---
Indication: well-being. Two-dimensional OB ultrasound performed. Comparison: April 17, 2020. There is again a single viable intrauterine in cephalic presentation. heart rate 154 BPM. Again posterior fundal placenta without abruption/previa. BPD measures 7.83 cm corresponding to 31 weeks 3 days. HC measures 27.51 cm corresponding to 30 weeks 0 days. AC measures 27.04 cm corresponding to 31 weeks 1 day. FL measures 6.20 cm corresponding to 32 weeks 1 day. Estimated weight 3 lbs. 14 oz., +/-9 ounces. Less than 3 percentile. GASPER is 13.9 cm. Impression: Again single viable intrauterine with mean gestational age 31 weeks 1 day. Fetus now measures 22 days smaller with respect to first exam November 01, 2019.
--- NOTE | 2020-05-11 21:37 | XRAY ---
Indication: well-being. Comparison: April 27, 2020. Ultrasound biophysical profile exam was performed. heart rate is 154 BPM. Four-quadrant GASPER is 13.9 cm. 2 points given for breathing, movements, tone, and qualitative amniotic fluid volume. Impression: Total biophysical profile score is again 8 out of 8.
== END 2020-05-11 16:50 | disposition home or self-care (01) ==
LOC: EDSTATUS 07:44 → OB 15:25
PROVIDERS: ADMIT Family Medicine; ATTEND Family Medicine
DX: Z34.83 Encounter for supervision of other normal pregnancy, third trimester (principal)
CPT/HCPCS: 59025; 76816; 76819; G0378

== ENCOUNTER 2020-05-14 12:19 | Observation (INO) | payer OTHER ==
[2020-05-14] MEDS ORDERED: PROTONIX 40 MG IV IV ONE ×2 (12:23→15:55)
[2020-05-14] MEDS ORDERED: Lactated Ringers 1,000 ML IV ONE ×2 (12:23→15:53)
[2020-05-14] MEDS ORDERED: Transderm Scop 1.5MG Patch TOP ONE (14:00)
[2020-05-14] MEDS ORDERED: DELTASONE 10 MG PO ONE (14:00)
[2020-05-14 16:39] LABS: Absolute Neutrophil Ct (ANC) 7.23 (1.4-6.9); BASOPHIL % 0.3 % (0.0-0.4); Basophil (Absolute #) 0.04 (0-0.4); Eosinophil % 0.6 % (0.00-5.0); Eosinophil (Absolute #) 0.07 (0-0.5); Hematocrit 34.5 % (35-47); Hemoglobin 11.1 gm/dl (12.0-16.0); Lymphocyte (Absolute #) 3.55 (1.0-4.6); Lymphocytes % 30.8 % (24.0-44.0); Mean Cell Volume 84.4 fl (78-100); Mean Corpuscular Hemoglobin 27.1 pg (26-32); Mean Corpuscular Hgb Concent. 32.2 g/dl (32-36); Mean Platelet Volume 8.7 fl (7.5-11.0); Monocyte (Absolute #) 0.63 (0.0-1.3); Monocytes % 5.5 % (0.0-12.0); Neutrophil % 62.8 % (36.0-66.0); Platelet Count 345 K/mm3 (150-450); Red Blood Count 4.09 M/mm3 (4.1-5.4); Red Cell Distribution Width 14.9 % (11.5-14.0); White Blood Count 11.5 K/mm3 (4.0-10.5)
[2020-05-14 16:49] VITALS: BP 119/85; PULSE 94
[2020-05-14 17:16] LABS: ALBUMIN 3.8 g/dL (3.5-5.0); ALKALINE PHOSPHATASE 147 U/L (38-126); ANION GAP 11.5 MEQ/L (5-15); BLOOD UREA NITROGEN 13 mg/dL (7-17); CHLORIDE 101 mmol/L (98-107); Calcium 9.2 mg/dL (8.4-10.2); Carbon Dioxide 23 mmol/L (22-30); Creatinine 1 0.51 mg/dL (0.52-1.04); Glucose 77 mg/dL (74-106); Potassium 3.7 mmol/L (3.5-5.1); SGOT/AST 18 U/L (14-36); SGPT/ALT 18 U/L (0-35); SODIUM 132 mmol/L (137-145); Total Protein 7.2 g/dL (6.3-8.2)
--- NOTE | 2020-05-15 08:41 | XRAY ---
Exam: OB biophysical without nonstress from 05/14/2020. Comparison: OB biophysical without nonstress from 05/11/2020. Indication: Malnutrition. Findings: OB biophysical profile scored 2 points out of a possible 2 points for each of the following: breathing movements, gross body movements, tone, and qualitative amniotic fluid volume. Amniotic fluid volume and heart rate are included with the OB study. Impression: 1. Total biophysical profile score is again 8 out of a possible 8 points representing no change from 05/11/2020.
--- NOTE | 2020-05-15 09:08 | XRAY ---
Exam: OB ultrasound follow-up per fetus from 05/14/2020. Comparison: OB ultrasound follow-up per fetus from 05/11/2020. Indication: IUGR - measure size of fetus. Findings: A single live intrauterine fetus is seen in the cephalic lie. heart rate measured 152 bpm. The placenta is not imaged on this study, but is noted to be posterior and fundal on 05/11/2020. Amniotic fluid index measured 12.20 cm, previously 13.89 cm on 05/11/2020. biometry: Biparietal diameter measures 7.83 cm consistent with a gestational age of 31 weeks, 3 days. Head circumference measures 29.05 cm consistent with a gestational age of 32 weeks, 0 days. Abdominal circumference measures 27.92 cm consistent with a gestational age of 32 weeks, 0 days. Femur length measures 6.36 cm consistent with a gestational age of 32 weeks, 6 days. Composite gestational age based on all of the current measurements is 32 weeks, 1 day plus or -2 weeks 2 days for an estimated due date of 07/08/2020. Previous size measurements on 05/11/2020 suggested a gestational age of 31 weeks, 1 day plus or -2 weeks, 1 day. However, established due date based on the first OB ultrasound during the first trimester on 11/01/2019 suggested a due date of 06/20/2020. At that time, the gestational age was 6 weeks, 6 days. Therefore, today's size measurements are 2 weeks, 4 days behind that anticipated by the first OB ultrasound. Estimated weight is 1923 g plus or -288.52 g (4 lbs. 4 oz.+ or -10 ounces) placing the fetus in the less than 3 percentile. This is unchanged from 05/11/2020. stomach, kidneys, and three-vessel umbilical cord were imaged. Impression: 1. There appears to have been satisfactory intrauterine growth since the prior exam of 05/11/2020. However, today's size measurements are still 2 weeks, 4 days behind that anticipated by the first OB ultrasound exam during the first trimester on 11/01/2019. The composite of today's measurements suggest a gestational age of 32 weeks, 1 day by size criteria. Estimated weight is 4 pounds, 4 ounces. This again places the fetus in the less than 3 percentile. 2. The fetus remains in the cephalic lie with a heart rate of 152 bpm. 3. Amniotic fluid volume is within normal limits measuring 12.20 cm, previously 13.89 cm on 05/11/2020.
== END 2020-05-14 18:20 | disposition home or self-care (01) ==
LOC: OB 15:41
PROVIDERS: ADMIT Family Medicine; ATTEND Family Medicine
DX: Z34.83 Encounter for supervision of other normal pregnancy, third trimester (principal)
CPT/HCPCS: 36415; 59025; 76816; 76819; 80053; 85025; G0378; 81003; A9270-GY

== ENCOUNTER 2020-05-23 04:54 | Observation (INO) | payer OTHER ==
--- NOTE | 2020-05-23 11:02 | XRAY ---
Indication: Normal care. Malnutrition. Ultrasound biophysical profile study was performed. Comparison: May 14, 2020. Again there is a single viable intrauterine with heart rate 163 BPM. Four-quadrant GASPER is 15.5 cm. 2 points given for breathing, movements, tone, and qualitative amniotic fluid volume. Impression: Total biophysical profile score remains 8 out of 8.
[2020-05-23 11:14] VITALS: BP 122/71; PULSE 77
== END 2020-05-23 11:55 | disposition home or self-care (01) ==
LOC: EDSTATUS 10:19 → OB 10:20
PROVIDERS: ADMIT Family Medicine; ATTEND Family Medicine
DX: Z34.83 Encounter for supervision of other normal pregnancy, third trimester (principal)
CPT/HCPCS: 59025; 76818; G0378

== ENCOUNTER 2020-05-29 15:03 | Observation (INO) | payer OTHER ==
--- NOTE | 2020-05-29 16:37 | XRAY ---
Indication: growth. Two-dimensional OB ultrasound performed. Comparison: May 14, 2020. There is again a single viable intrauterine in cephalic presentation. heart rate 159 BPM. urinary bladder is distended. BPD measures 8.06 cm corresponding to 32 weeks 3 days. HC measures 29.48 cm corresponding to 32 weeks 4 days. AC measures 30.52 cm corresponding to 34 weeks 3 days. FL measures 6.65 cm corresponding to 34 weeks 2 days. Estimated weight 5 lbs. 2 oz., +/-12 ounces. Approximately 4 percentile. GASPER is 11.1 cm. Impression: Again single viable intrauterine with mean gestational age 33 weeks 3 days. Fetus measures 24 days smaller with respect to first exam November 01, 2019.
--- NOTE | 2020-05-29 16:39 | XRAY ---
Indication: well-being. Ultrasound biophysical profile study was performed. Comparison: May 23, 2020. Again there is a single viable uterine with heart rates 159 BPM. Four-quadrant GASPER is 11.1 cm. 2 points given for breathing, movements, tone, and qualitative amniotic fluid volume. Impression: Total biophysical profile score continues to remain 8 out of 8.
[2020-05-29 17:52] VITALS: BP 111/74; PULSE 105
== END 2020-05-29 17:15 | disposition home or self-care (01) ==
LOC: UNDOADMOB 15:03 → MED SURG 15:03 → UNDODISOB 17:15
PROVIDERS: ADMIT Family Medicine; ATTEND Family Medicine
DX: Z34.83 Encounter for supervision of other normal pregnancy, third trimester (principal)
CPT/HCPCS: 59025; 76816; 76818; G0378

== ENCOUNTER 2020-06-07 11:05 | Inpatient (IN) | payer OTHER ==
[2020-06-07] MEDS ORDERED: Transderm Scop 1.5MG Patch TOP PRN (18:14)
[2020-06-07 19:57] LABS: Hematocrit 34.2 % (35-47); Hemoglobin 10.9 gm/dl (12.0-16.0); Mean Cell Volume 83.4 fl (78-100); Mean Corpuscular Hemoglobin 26.6 pg (26-32); Mean Corpuscular Hgb Concent. 31.9 g/dl (32-36); Mean Platelet Volume 8.4 fl (7.5-11.0); Platelet Count 348 K/mm3 (150-450); Red Cell Distribution Width 15.6 % (11.5-14.0); White Blood Count 14.6 K/mm3 (4.0-10.5)
[2020-06-07] MEDS ORDERED: TYLENOL EXTRA STRENGTH 500 MG PO PRN (20:26)
[2020-06-07] MEDS ORDERED: LANSINOH 40 GM TOP PRN (20:26)
[2020-06-07] MEDS ORDERED: Dulcolax 10 MG SUPP PR PRN (20:26)
[2020-06-07] MEDS ORDERED: Dermoplast Spray TP PRN (20:26)
[2020-06-07] MEDS ORDERED: MOTRIN 400 MG PO PRN (20:26)
[2020-06-07] MEDS ORDERED: DELTASONE 10 MG ONE (20:37)
[2020-06-07] MEDS: DELTASONE 10 MG PO SCH (20:55)
[2020-06-07] MEDS: Pepcid 20 MG PO SCH (20:55)
[2020-06-07] MEDS: Heparin 5000 UNITS/0.5 ML (HIGH RISK MED) SQ SCH (20:56)
[2020-06-07] MEDS: Colace 100 MG PO SCH (20:57)
[2020-06-07] MEDS ORDERED: Heparin 5000 UNITS/0.5 ML (HIGH RISK MED) IV SCH (22:00)
[2020-06-08 04:09] LABS: Absolute Neutrophil Ct (ANC) 11.79 (1.4-6.9); BASOPHIL % 0.1 % (0.0-0.4); Basophil (Absolute #) 0.02 (0-0.4); Eosinophil % 0.1 % (0.00-5.0); Eosinophil (Absolute #) 0.01 (0-0.5); Hematocrit 31.4 % (35-47); Hemoglobin 9.8 gm/dl (12.0-16.0); Lymphocyte (Absolute #) 2.21 (1.0-4.6); Lymphocytes % 15.3 % (24.0-44.0); Mean Cell Volume 83.7 fl (78-100); Mean Corpuscular Hemoglobin 26.1 pg (26-32); Mean Corpuscular Hgb Concent. 31.2 g/dl (32-36); Mean Platelet Volume 8.6 fl (7.5-11.0); Monocyte (Absolute #) 0.45 (0.0-1.3); Monocytes % 3.1 % (0.0-12.0); Neutrophil % 81.4 % (36.0-66.0); Platelet Count 328 K/mm3 (150-450); Red Blood Count 3.75 M/mm3 (4.1-5.4); Red Cell Distribution Width 15.6 % (11.5-14.0); White Blood Count 14.5 K/mm3 (4.0-10.5)
[2020-06-08] MEDS ORDERED: Heparin 5000 UNITS/0.5 ML (HIGH RISK MED) ONE ×2 (10:15→10:29)
[2020-06-08] MEDS ORDERED: Protonix 40MG Tablet ONE (10:20)
[2020-06-08] MEDS ORDERED: DELTASONE 10 MG ONE (10:20)
[2020-06-08] MEDS: Pepcid 20 MG PO SCH ×2 (10:23→21:17)
[2020-06-08] MEDS: Heparin 5000 UNITS/0.5 ML (HIGH RISK MED) SQ SCH ×2 (10:23→21:30)
[2020-06-08] MEDS: Protonix 40MG Tablet PO SCH (10:23)
[2020-06-08] MEDS: DELTASONE 10 MG PO SCH (10:23)
[2020-06-08] MEDS: Colace 100 MG PO SCH ×2 (10:24→21:17)
[2020-06-09 03:24] VITALS: O2SAT 96
[2020-06-09] MEDS: Pepcid 20 MG PO SCH (09:50)
[2020-06-09] MEDS: Protonix 40MG Tablet PO SCH (09:50)
[2020-06-09] MEDS: Heparin 5000 UNITS/0.5 ML (HIGH RISK MED) SQ SCH (09:50)
[2020-06-09] MEDS: DELTASONE 10 MG PO SCH (09:50)
[2020-06-09] MEDS: Colace 100 MG PO SCH (09:50)
--- NOTE | 2020-06-09 11:51 | PCM.DS ---
Discharge Summary Date of Admission: 06/07/20 11:05 Admitting Physician: ERIC HIGHTOWER Primary Care Provider: DARVIN MOROCHO MD Allergies Allergies ketorolac tromethamine [From Toradol] Allergy (Severe, Verified 06/07/20 12:22) Hives ondansetron [From Zofran] Allergy (Severe, Verified 06/07/20 12:22) Hives sumatriptan [From Imitrex] Allergy (Severe, Verified 06/07/20 12:22) Hives sumatriptan succinate [From Imitrex] Allergy (Severe, Verified 06/07/20 12:22) Hives tramadol Allergy (Severe, Verified 06/07/20 12:22) [facility] Summary - Hospital Course Hospital Course: Pt is a [address] Morocho who came to the hospital via ambulance after having delivered her baby at her home. She was getting ready to come to the hospital when she had her call the ambulance; she had SROM and the baby came right out before the ambulance could get there. He cried immediately and latched on to the breast in the ambulance. Once at the hospital, Dr. Hightower delivered the placenta (for full details, see his delivery note). Baby has been very well. Pt had hyperemesis gravidarum during her and required a PICC line (after which she developed RUE DVT and is on heparin). She is currently on po steroids (for > the past 1 mo) at 10mg/d. Pt is feeling great after her delivery. No pain at all. "I could run a marathon!" Will be discharged to home on slightly decreased dose of prednisone and f/u with Dr. Morocho next week. Her baby's weight was 4lb 11oz and is currently 4lb 7oz; he will come in for re-weigh in 2d and f/u with Dr. Morocho next week as well. - Vitals & Intake/Output Vital Signs: Vital Signs Temperature 98.3 F 06/09/20 08:00 Pulse Rate 59 L 06/09/20 08:00 Respiratory Rate 18 06/09/20 08:00 Blood Pressure 109/58 06/09/20 08:00 O2 Sat by Pulse Oximetry 96 06/09/20 02:00 Intake & Output: Intake & Output 06/06/20 06/07/20 06/08/20 06/09/20 11:59 11:59 11:59 11:59 Intake Total 1100 400 Output Total 200 Balance 900 400 Weight 54.431 kg - Lab Result Diagrams: 06/08/20 04:00 Discharge Exam General Appearance: no apparent distress, alert Neurologic Exam: oriented x 3, cooperative Eye Exam: eyes nml inspection Ears, Nose, Throat Exam: moist mucous membranes Neck Exam: normal inspection Respiratory Exam: normal breath sounds, lungs clear, No crackles/rales, No rhonchi, No wheezing Cardiovascular Exam: regular rate/rhythm, normal heart sounds, No murmur Gastrointestinal/Abdomen Exam: soft, normal bowel sounds, other (fundus firm inferior to umbilicus), No tenderness, No distention, No mass Back Exam: normal inspection, No rash Skin Exam: normal color, warm, dry, No rash Final Diagnosis/Problem List - Final Discharge Diagnosis/Problem (1) Spontaneous vaginal delivery Current Visit: Yes Status: Acute Assessment & Plan: PPD #2, doing great, home with baby today (pending Tbili result on baby). Code(s): O80 - ENCOUNTER FOR FULL-TERM UNCOMPLICATED DELIVERY (2) Anemia Current Visit: Yes Status: Acute Assessment & Plan: home on iron. Code(s): D64.9 - ANEMIA, UNSPECIFIED (3) Steroid dependence Current Visit: Yes Status: Acute Assessment & Plan: home on 7.5mg steroid daily x 1 week; f/u with Dr. Morocho this week. Code(s): F19.20 - OTHER PSYCHOACTIVE SUBSTANCE DEPENDENCE, UNCOMPLICATED (4) Deep vein thrombosis (DVT) of right upper extremity Current Visit: Yes Status: Acute Assessment & Plan: continue heparin; f/u with Dr. Morocho. U/s this week showed persistent DVT. Code(s): I82.621 - ACUTE EMBOLISM AND THROMBOSIS OF DEEP VEINS OF R UP EXTREM - Discharge Disposition: Home, Self-Care Condition: Stable Prescriptions: New Prednisone 5 mg [Deltasone 5 mg] 5 mg PO DAILY #14 tablet Ferrous Sulfate 325 mg PO DAILY #30 tablet Continue Vits W-Ca,Fe,FA(<1Mg) [] 1 each PO DAILY Pantoprazole Sodium [Protonix] 40 mg PO DAILY Famotidine [Pepcid] 20 mg PO BID Heparin 5000 Units/0.5 ml [Heparin 5000 UNITS/0.5 ML (HIGH RISK MED)] 5,000 unit SQ BID Discontinued Prednisone 10 mg [Deltasone 10 mg] 10 mg PO DAILY Promethazine HCl 25 mg [Phenergan 25 mg] 25 mg PO HS Additional Instructions: Continue heparin until you discuss with Dr. Morocho. Do NOT stop taking prednisone until Dr. Morocho instructs you to. If you are running out of pills, please call the office [facility] (please give 48 hours notice). Follow up with: DARVIN MOROCHO MD [Primary Care Provider] - 1 Week
[2020-06-09 15:56] VITALS: BP 106/58; PULSE 62
== END 2020-06-09 15:58 | disposition home or self-care (01) | DRG 806 ==
LOC: OB 11:05 → MED SURG 06-08 20:26 → OB 06-08 20:26 → UNDODISIN 06-09 15:58
PROVIDERS: ADMIT Family Medicine; ATTEND Family Medicine
PROC: 10E0XZZ Delivery of Products of Conception, External Approach (ICD-10-PCS; principal; 2020-06-07)
DX: O80 Encounter for full-term uncomplicated delivery (principal); F19.20 Other psychoactive substance dependence, uncomplicated; Z37.0 Single live birth; I82.621 Acute embolism and thrombosis of deep veins of right upper extremity; Z3A.38 38 weeks gestation of pregnancy; D64.9 Anemia, unspecified; Z79.899 Other long term (current) drug therapy
CPT/HCPCS: 36415; 76816; 81003; 85025; 85027; 85730; 93971; J1644; A9270-GY

== ENCOUNTER 2020-07-31 07:10 | Day surgery (SDC) | payer OTHER ==
[~2020-07-31 07:10] MED LIST: BRIDION 200MG/2ML IV ONE; DIPRIVAN 200 MG/20 ML IV ONE; Decadron 4 MG INJ ONE; SUBLIMAZE 100 MCG/2 ML ONE; Xylocaine-Mpf 2% 5 Ml Vial ONE; Zemuron 100 MG/10 ML ONE
[2020-07-31] MEDS ORDERED: KEFZOL 1 GM/50 ML PREMIX** 1 GM/50 ML IVPB IV SCH (07:15)
[2020-07-31] MEDS ORDERED: Lactated Ringers 1,000 ML IV ONE (07:19)
[2020-07-31] MEDS ORDERED: KEFZOL 1 GM/50 ML PREMIX** 1 GM/50 ML IVPB IV ONE (07:19)
[2020-07-31] MEDS ORDERED: Lactated Ringers 1,000 ML IV SCH (07:30)
[2020-07-31] MEDS ORDERED: Sensorcaine 0.25% 10 ML ONE (09:24)
[2020-07-31] MEDS ORDERED: SUBLIMAZE 100 MCG/2 ML ONE (09:45)
[2020-07-31] MEDS ORDERED: Compazine 10 MG/2 ML ONE (09:46)
[2020-07-31 11:51] VITALS: O2SAT 99
[2020-07-31 11:55] VITALS: BP 120/85; PULSE 74
[2020-07-31 14:24] LABS: Appearance SLIGHTLY CLOUDY (CLEAR); Bilirubin NEGATIVE (NEGATIVE); Blood SMALL Ery/ul (0-5); Glucose NEGATIVE (NEGATIVE); Ketones NEGATIVE (NEGATIVE); Leukocyte Esterase NEGATIVE (NEGATIVE); Mucus MANY /HPF (NEGATIVE); Nitrite NEGATIVE (NEGATIVE); Protein,Urine Dip NEGATIVE (Negative); Specific Gravity 1.025 (1.005-1.025); Urobilinogen 2 mg/dL (0-1)
--- NOTE | 2020-08-01 07:51 | OP ---
SURGERY DATE/TIME: 07/31/2020 0851 PREOPERATIVE DIAGNOSIS: Multiparity desiring tubal sterilization. POSTOPERATIVE DIAGNOSIS: Multiparity desiring tubal sterilization. PROCEDURE: Laparoscopic tubal sterilization via Falope ring application. SURGEON: Javier Reardon D.O. SUIT ATTENDANT: Beto Chowdhury surgical supervisor. ANESTHESIA: General. ESTIMATED BLOOD LOSS: Minimal. COMPLICATIONS: None. INDICATIONS: The risks, benefits, indications and alternatives of the procedure were reviewed with the patient prior to the procedure. The patient understood the risk of infection, bleeding, bowel injury, bladder injury, ureteral injury, pelvic infection, possible and ectopic that may be associated with this procedure however desires to have this procedure as a possible means to alleviate her current medical condition. DESCRIPTION OF PROCEDURE AND FINDINGS: At this point the patient is taken to the operating room, given general sedation, placed in a dorsal lithotomy position, prepped and draped in the usual sterile fashion. A weighted speculum is then placed in the patient's vagina and the anterior lip of the cervix was grasped with a single tooth tenaculum. Endocervical dilators were advanced through the endocervical canal as a means to dilate the cervix and the uterine manipulator was then placed into the cervix as a means to manipulate the uterus. Attention was then turned to the patient's abdomen where a 5 mm skin incision is made approximately 1 cm above the umbilicus where a 5 mm trocar and sleeve were advanced under direct visualization where pneumoperitoneum was obtained with 4 liters of CO2 gas. An additional incision was made at the suprapubic region where an 8 mm incision was made and 8 mm trocar and sleeve were advanced under direct visualization as well without complication. From this point visualization of the pelvic and abdominal region appeared to be within normal limits with no gross abnormalities that were noted. From this point the Falope ring applicator was then applied through the trocar site and the right fallopian tube just at the isthmic region was then grasped and the Falope ring was applied without complication. The same procedure was performed on the left side where the Falope ring was reloaded and the ring was reloaded and it was applied to the left fallopian tube on the isthmic region and was done so without complication and no bleeding was noted. From this point the Falope ring applicator was then removed as well as both trocars from the abdominal region. The gas is then removed. The patient was taken out of dorsal lithotomy position. The incisions were repaired with 4-0 Monocryl suture and subsequent Dermabond. The patient was then taken out of anesthesia and was then taken to the recovery room in stable condition. All instruments and laps were accounted for x2.
== END 2020-07-31 11:40 | disposition home or self-care (01) ==
LOC: SDC 07:10
PROVIDERS: ATTEND Obstetrics & Gynecology
DX: Z30.2 Encounter for sterilization (principal)
CPT/HCPCS: 81001; 84703; 87086; J0690; J1100; J2704; J3010

== ENCOUNTER 2021-03-08 18:54 | Emergency (ER) | payer OTHER ==
[2021-03-08 19:07] VITALS: O2SAT 98
[2021-03-08] MEDS ORDERED: NORCO 5/325 MG PO ONE (19:20)
--- NOTE | 2021-03-08 19:30 | ERPHSYRPT ---
- History of Present Illness Time Seen by Provider: 03/08/21 19:03 Source: patient Exam Limitations: no limitations Patient Subjective Stated Complaint: pt states she hit a car door about an hour ago,co pain to right hand pain Triage Nursing Assessment: pt has alert, walked in, resp easy, skin w/d/p.has abrasion to right hand Physician History: 25 years old right-handed dominant female presented in the ER with chief c omplaint of right fourth and fifth metacarpophalangeal joint area pain and swelling after she punched car almost an hour ago after getting angry on something. She is complaining of moderate intensity sharp pain with movements of fourth and fifth finger and better with being still. No numbness or tingling in the fingers. No injury anywhere else. No skin break. Occurred: hours ago (1) Method of Injury: direct blow Quality: constant, sharpness Severity of Pain-Max: moderate Severity of Pain-Current: moderate Extremities Pain Location: hand: right Modifying Factors: Improves With: immobilization, rest. Worsens With: movement Associated Symptoms: none Allergies/Adverse Reactions: ketorolac tromethamine [From Toradol] Allergy (Severe, Verified 03/08/21 19:07) Hives ondansetron [From Zofran] Allergy (Severe, Verified 03/08/21 19:07) Hives sumatriptan [From Imitrex] Allergy (Severe, Verified 03/08/21 19:07) Hives sumatriptan succinate [From Imitrex] Allergy (Severe, Verified 03/08/21 19:07) Hives tramadol Allergy (Severe, Verified 03/08/21 19:07) Hives Hx Tetanus, Diphtheria Vaccination/Date Given: Yes Hx Influenza Vaccination/Date Given: No Hx Pneumococcal Vaccination/Date Given: No Immunizations Up to Date: Yes Travel Risk - International Travel Have you traveled outside of the country in past 3 weeks: No - Coronavirus Screening Are you exhibiting any of the following symptoms?: No Close contact with a COVID-19 positive Pt in past 14-21 Days: No - Vaccine Status Have you recieved a Covid-19 vaccination: No - Review of Systems Constitutional: No Symptoms Ears, Nose, & Throat: No Symptoms Respiratory: No Symptoms Cardiac: No Symptoms Abdominal/Gastrointestinal: No Symptoms Genitourinary Symptoms: No Symptoms Musculoskeletal: Injury, Joint Redness, Joint Pain Skin: No Symptoms Neurological: No Symptoms Psychological: No Symptoms - Past Medical History Pertinent Past Medical History: Yes Neurological History: Migraines ENT History: No Pertinent History Cardiac History: No Pertinent History Respiratory History: Asthma Endocrine Medical History: No Pertinent History Musculoskeletal History: No Pertinent History GI Medical History: Other History: No Pertinent History Psycho-Social History: Depression, Anxiety Female Reproductive Disorders: Endometriosis Other Medical History: FREQUENT KIDNEY INFECTION. Hyperemisis gravidiumn - Past Surgical History Past Surgical History: Yes Neuro Surgical History: No Pertinent History Cardiac: No Pertinent History Respiratory: No Pertinent History Gastrointestinal: No Pertinent History Genitourinary: No Pertinent History Musculoskeletal: No Pertinent History Female Surgical History: Tubal Ligation, Other Other Surgical History: lypoma 2013, laproscopy for endometriosis 2011, crush injury to left pinky with infection 2004, carpal and cubital tunnel surgery right hand 2017 - Social History Smoking Status: Former smoker How long have you smoked: 6 yrs Exposure to second hand smoke: No Drug Use: none Patient Lives Alone: No Significant Family History: no pertinent family hx - Female History Hx Last Menstrual Period: 1 week ago Hx Now: No - Nursing Vital Signs Nursing Vital Signs: Initial Vital Signs Temperature 97.0 F 03/08/21 19:00 Pulse Rate 74 03/08/21 19:00 Respiratory Rate 18 03/08/21 19:00 Blood Pressure 137/94 03/08/21 19:00 O2 Sat by Pulse Oximetry 98 03/08/21 19:00 Pain Scale Pain Intensity 7 - Physical Exam General Appearance: no apparent distress Neck Exam: normal inspection, full range of motion Cardiovascular/Respiratory Exam: normal breath sounds, regular rate/rhythm Elbow/Forearm Exam: normal inspection, non-tender, normal ROM Wrist Exam: normal inspection, non-tender, no evidence of injury, normal ROM Hand Exam: bone tenderness (Fourth and fifth metacarpal phalangeal joint area right hand limiting extension flexion), swelling Neuro/Tendon Exam: normal sensation Mental Status Exam: alert, oriented x 3, cooperative Skin Exam: normal color SpO2 Interpretation: normal SpO2: 98 O2 Delivery: Room Air Ordered Tests: Active Orders 24 hr Category Date Time Status HAND (MINIMUM 3 VIEWS) Stat Exams 03/08/21 19:12 Ordered Medication Summary Discontinued Medications Generic Name Dose Route Start Last Admin Trade Name Freq PRN Reason Stop Dose Admin Hydrocodone Bitart/Acetaminophen 1 tab 03/08/21 19:20 [place] 5/325 Mg PO 03/08/21 19:21 STAT ONE - Progress Progress: improved, pain not gone completely, re-examined Progress Note: 03/08/21 19:32 I did not appreciate any fracture dislocation on x-rays reviewed by me, official report is pending. I believe patient has contusion, placed in ulnar gutter splint and outpatient orthopedic clinic follow-up recommended. Recommended Tylenol, ice and elevation. Counseled pt/family regarding: diagnosis, need for follow-up, rad results - Departure Departure Disposition: Home Clinical Impression: Hand contusion Qualifiers: Encounter type: initial encounter Laterality: right Qualified Code(s): S60.221A - Contusion of right hand, initial encounter Condition: Stable Critical Care Time: No Referrals: DARVIN REILLY MD [Primary Care Provider] - Follow Up with PCP/3 days ORTHO - JOSE L DAVIS NP [NON-STAFF PHY W/O PRIVILEGES] - (Thursday morning for reevaluation.) Instructions: Boxer's Fracture (DC) Additional Instructions: Apply ice, avoid exertional activities. Take Tylenol as needed for pain. Follow-up with primary care/Ortho for reevaluation. Return to ER for worsening pain, difficulty movements of finger etc.
[2021-03-08] MEDS ORDERED: NORCO 5/325 MG ONE (19:40)
[2021-03-08 20:07] VITALS: BP 116/70; PULSE 90
--- NOTE | 2021-03-08 22:15 | XRAY ---
Indication: Fifth digit pain following trauma. Comparison: November 04, 2011. 3 view right hand demonstrate mild posterior MCP soft tissue swelling. No other bony, articular, or soft tissue abnormalities.
== END 2021-03-08 20:08 | disposition home or self-care (01) ==
LOC: ED 18:54
DX: S60.221A Contusion of right hand, initial encounter (principal); M79.641 Pain in right hand; W22.8XXA Striking against or struck by other objects, initial encounter; Y93.9 Activity, unspecified; Y92.89 Other specified places as the place of occurrence of the external cause
CPT/HCPCS: 73130; 99284; A9270-GY

== ENCOUNTER 2021-05-08 06:02 | Day surgery (SDC) | payer OTHER ==
[2021-05-08] MEDS ORDERED: Lactated Ringers 1,000 ML IV SCH (07:00)
[2021-05-08] MEDS ORDERED: PROVENTIL 2.5 MG/3 ML NEB IH ONE (09:06)
--- NOTE | 2021-05-08 09:23 | OP ---
SURGERY DATE/TIME: 05/08/2021 0813 PREOPERATIVE DIAGNOSES: 1) Abdominal pain. 2) Weight loss. POSTOPERATIVE DIAGNOSIS: Normal exam. PROCEDURES: 1) EGD. 2) Colonoscopy. SURGEON: Lobo Robb M.D. ANESTHESIA: MAC by Kyle Wooten CRNA. ESTIMATED BLOOD LOSS: Minimal. SPECIMENS: 1) Two cold forceps biopsies taken from the duodenum. 2) Two cold forceps biopsies from the sigmoid colon. DESCRIPTION OF PROCEDURE: After informed written consent was obtained, the patient was placed in left lateral decubitus position, a bite block was inserted and anesthesia was titrated to desired level of consciousness. The endoscope was inserted in the posterior oropharynx and under direct visualization the esophagus is traversed. The gastroesophageal junction had normal mucosal appearance. Upon entering the stomach there was normal rugated gastric mucosa. The pylorus was traversed and the first and second portions of the duodenum appeared within normal limits. Two random cold forceps biopsies were collected and sent for celiac diagnostic evaluation. Upon withdrawal again the entire gastric mucosa had no lesions or defects or abnormalities appreciable. The gastroesophageal junction and esophageal mucosa all appeared normal as well. The scope was removed and the scopes were switched. Digital rectal exam showed normal sphincter tone and no internal lesions. The scope was inserted in the rectum and sequentially the entire colonic mucosa was traversed. The level of the cecum was reached and verified with direct visualization of the ileocecal valve. No gross abnormalities were appreciable in this area. Upon withdrawal again no mucosal abnormalities were present. There was some liquid stool throughout the colon but prep was fair. Two random cold forceps biopsies were taken from the sigmoid colon in the distal sigmoid area and sent for pathologic review. Prior to withdrawal retroflexion was performed and showed no internal lesions. The scope was removed and the patient was transferred to the recovery room in good condition.
[2021-05-08 09:33] VITALS: O2SAT 100
[2021-05-08 09:43] VITALS: BP 115/63; PULSE 80
== END 2021-05-08 09:47 | disposition home or self-care (01) ==
LOC: SDC 06:02
PROVIDERS: ATTEND Family Medicine
DX: R10.9 Unspecified abdominal pain (principal); R63.4 Abnormal weight loss; J45.909 Unspecified asthma, uncomplicated; Z79.899 Other long term (current) drug therapy
CPT/HCPCS: 84703; 88305; 94640; J2704; J7609; A9270-GY